=== PATIENT | female | born 1950 | race Caucasian/White ===

== ENCOUNTER 2019-11-30 20:26 | Emergency (ER) | payer OTHER, MEDICAID ==
[~2019-11-30] VITALS: Ht 167.6 cm; Wt 74.8 kg
--- NOTE | 2019-11-30 22:06 | NUR ---
PT BIBPA C/O ABDOMINAL PAIN WITH VOMITING SINCE 1900. PT AAOX1, VSS, NO ACUTE DISTRESS NOTED. RBEATHING EVEN AND UNLABORED ON RA. CONNECTED TO THE MONITOR AND POX
--- NOTE | 2019-11-30 22:08 | NUR ---
JAZZY COLLECTED AND SENT TO LAB.
[2019-11-30 22:25] LABS: BASOPHILS % (AUTO) 0.3 % (0.0-2.0); HEMATOCRIT 38 % (33-45); HEMOGLOBIN 12.9 g/dL (11.5-14.8); LYMPHOCYTES # (AUTO) 0.6 /CMM (0.8-4.8); LYMPHOCYTES % (AUTO) 8.5 % (20.0-44.0); MEAN CORPUSCULAR HGB CONC 34 g/dl (31.0-36.0); MEAN CORPUSCULAR VOLUME 87 fL (82-100); MONOCYTES # (AUTO) 0.3 /CMM (0.1-1.30); MONOCYTES % (AUTO) 4.4 % (2.0-12.0); NEUTROPHILS # (AUTO) 6.4 /CMM (1.8-8.9); NEUTROPHILS % (AUTO) 86.8 % (43.0-81.0); PLATELET COUNT (AUTO) 288 /CMM (150-450); RED BLOOD CELL COUNT(AUTO) 4.37 MIL/uL (4.0-5.2); WHITE BLOOD COUNT (AUTO) 7.4 K/uL (4.3-11.0)
[2019-11-30] MEDS ORDERED: ONDANSETRON HCL/PF 4 MG/2 ML VIAL ONE (22:29)
[2019-11-30] MEDS ORDERED: ONDANSETRON HCL/PF 4 MG/2 ML VIAL IVP ONE (22:30)
[2019-11-30] MEDS ORDERED: IV NS 0.9% 500 ML BAG IV ONE (22:30)
[2019-11-30 22:36] LABS: CALCIUM, SERUM 9.5 mg/dL (8.5-10.1); CARBON DIOXIDE 31 mmol/L (21-32); CHLORIDE 102 mmol/L (98-107); CREATININE 0.7 mg/dL (0.6-1.3); GLUCOSE 171 mg/dL (74-106); POTASSIUM 3.1 mmol/L (3.5-5.1); SODIUM SERUM 142 mmol/L (136-145); UREA NITROGEN, BLOOD 14 mg/dL (7-18)
[2019-11-30 22:42] LABS: ALANINE AMINOTRANSFERASE 22 U/L (12-78); ALBUMIN 3.4 g/dL (3.4-5.0); ALKALINE PHOSPHATASE 73 U/L (46-116); ASPARTATE AMINOTRANSFERASE 23 U/L (15-37); BILIRUBIN,DIRECT 0.2 mg/dL (0.0-0.2); BILIRUBIN,TOTAL 0.8 mg/dL (0.2-1.0); LIPASE 137 U/L (73-393)
--- NOTE | 2019-11-30 22:50 | NUR ---
XRAY AT BEDSIDE
--- NOTE | 2019-11-30 23:00 | NUR ---
PT REFUSED TO GIVE URINE SAMPLE
[2019-12-01] MEDS ORDERED: POTASSIUM CHLORIDE 20 MEQ TAB.PRT.SR PO ONE ×2 (00:07)
--- NOTE | 2019-12-01 00:11 | NUR ---
PT REFUSED POTASSIUM PILLS MADE AWARE
--- NOTE | 2019-12-01 01:00 | NUR ---
US AT BEDSIDE
[2019-12-01] MEDS ORDERED: PIPERACILLIN /TAZOBACTAM 3.375 G VIAL IV ONE (01:27)
[2019-12-01] MEDS ORDERED: PIPERACILLIN /TAZOBACTAM 3.375 G in IV D5W 50 ML IV ONE (01:30)
[2019-12-01] MEDS ORDERED: POTASSIUM CL. PREMIX PERIPHER. 200 ML ONE (01:43)
[2019-12-01] MEDS ORDERED: MORPHINE SULFATE INJ 4 MG/ML DISP.SYRIN ONE (01:43)
[2019-12-01] MEDS ORDERED: MORPHINE SULFATE INJ 2 MG/ML DISP.SYRIN IV ONE (02:00)
[2019-12-01] MEDS ORDERED: POTASSIUM CHLORIDE 10 MEQ/50 ML PREMIXED IVPB FOR PERIPHERAL LINE IV ONE (02:00)
--- NOTE | 2019-12-01 02:20 | NUR ---
FIRST DOSE OF POTASSIUM 10 MEQ GIVEN THRU IV RAC 20 G.
--- NOTE | 2019-12-01 03:27 | NUR ---
2ND DOSE OF K+ GIVEN 10 MEQ END TIME 0427 RAC 20G
[2019-12-01 03:31] VITALS: BP 134/76
--- NOTE | 2019-12-01 04:19 | NUR ---
REPORT GIVEN TO EMS, PT STABLE FOR TRANSFER
--- NOTE | 2019-12-01 04:19 | NUR ---
REPORT GIVEN TO PORTIA CARVALHO
== END 2019-12-01 04:21 | disposition short-term general hospital (02) ==
LOC: ER 20:35
DX: E87.6 Hypokalemia (principal); K80.50 Calculus of bile duct without cholangitis or cholecystitis without obstruction; F03.90 Unspecified dementia, unspecified severity, without behavioral disturbance, psychotic disturbance, mood disturbance, and anxiety; Z88.7 Allergy status to serum and vaccine
CPT/HCPCS: 36415; 71045; 74176; 76705; 80048; 80076; 83690; 84484; 85025; 85730; 93005; 96365; 96366; 96367; 96375 ×2; 99285; J2270; J2405; J2543 ×2; J3480; J7040 ×2; J7060